=== PATIENT | male | born 1950 | race Caucasian/White ===

== ENCOUNTER 2016-04-16 08:57 | Outpatient (CLI) | payer OTHER ==
--- NOTE | 2016-04-16 11:24 | DIAGNOSTIC IMAGING REPORT ---
PROCEDURE: XR FINGER - LEFT INDICATION: L WRIST PAIN,PAIN OF FINGER OF L HAND TECHNIQUE: A P hand and two views of the left fifth digit. COMPARISON: None. FINDINGS: Normal mineralization. Comminuted, mildly displaced fracture through the diaphysis of the fifth distal phalanx. Very slight dorsal subluxation of the distal fracture fragment. No involvement of the DIP joint. No other fractures. No radiodense foreign body. Moderate soft tissue swelling around the distal fifth digit. IMPRESSION: 1. Mildly displaced, comminuted fifth distal phalanx fracture. If there has been disruption to the nail bed, treat as open fracture. 2. Soft tissue swelling without radiodense foreign body.
--- NOTE | 2016-04-16 11:27 | DIAGNOSTIC IMAGING REPORT ---
PROCEDURE: XR WRIST 1 OR 2 VIEWS - LEFT INDICATION: L WRIST pain, remote fracture, recent injury, and radial sided pain. TECHNIQUE: Two views left wrist. COMPARISON: None FINDINGS: Normal mineralization. No acute fractures. Moderate first carpal metacarpal joint space loss, sclerosis, hypertrophic spurring, remodelling, and subchondral cystic change. Alignment is fairly well maintained. No significant soft tissue swelling, calcifications, or radiodense foreign bodies. IMPRESSION: 1. Moderate osteoarthritic changes at the first carpal metacarpal joint. 2. No evidence of acute or subacute fracture.
== END 2016-04-16 23:00 ==
LOC: XR SRH 08:57
DX: S62.637A Displaced fracture of distal phalanx of left little finger, initial encounter for closed fracture (principal); M79.9 Soft tissue disorder, unspecified